=== PATIENT | female | born 1985 | race Caucasian/White ===

== ENCOUNTER 2019-07-27 13:28 | Inpatient (IN) | payer MEDICAID ==
[~2019-07-27] VITALS: Ht 167.6 cm; Wt 89.2 kg
[~2019-07-27 13:28] MED LIST: HYDR-523; IBUP-2030 PO; TRAM50TA3 PO
[2019-07-27] MEDS ORDERED: MORPHINE SULFATE 4 MG/ML CPJ (NOT FOR IM USE) IV STA (14:01)
[2019-07-27] MEDS ORDERED: SODIUM CHLORIDE 0.9% 1,000 ML IV ONE (14:01)
[2019-07-27] MEDS ORDERED: ONDANSETRON HCL 4MG/2ML INJ IV STA (14:01)
[2019-07-27 14:19] LABS: BASOPHILS % 0.2 % (0.0-2.0); EOSINOPHILS % 0.9 % (0.0-5.0); HEMATOCRIT. 38.4 % (36.0-48.0); HEMOGLOBIN. 13.4 g/dL (12.0-16.0); LYMPHOCYTES % 17.8 % (20.0-50.0); MEAN CORPUSCULAR HEMOGLOBIN 31.1 pg (28.0-32.0); MEAN CORPUSCULAR VOLUME 89.1 fL (81.0-99.0); MEAN PLATELET VOLUME 8.6 fl (7.4-10.4); MONOCYTES % 7.4 % (2.0-8.0); NEUTROPHILS % 73.7 % (40.0-76.0); PLATELET 265 x1000/uL (130-400); RED BLOOD CELL COUNT 4.31 mill/uL (4.2-5.4); RED CELL DISTRIBUTION WIDTH 13.5 % (11.6-14.6)
[2019-07-27 14:24] LABS: PROTHROMBIN TIME 10.4 sec (9.6-11.0)
[2019-07-27 14:28] LABS: CHLORIDE 108 mEq/L (98-107)
[2019-07-27 14:32] LABS: HCG SCREEN NEGATIVE
[2019-07-27] MEDS ORDERED: IOHEXOL-300 100 ML BOTTLE ONE (17:39)
[2019-07-27 20:20] VITALS: BP 104/61
[2019-07-27 20:30] VITALS: BP 104/61
[2019-07-27] MEDS ORDERED: KETOROLAC 30MG/ML VIAL IV PRN (21:30)
[2019-07-27] MEDS ORDERED: SODIUM CHLORIDE 0.9% 1,000 ML IV SCH (21:45)
[2019-07-28] VITALS: BP 93/43
[2019-07-28] MEDS ORDERED: MAGNESIUM/ALUMINUM HYDROXIDE/SIMETHICONE 30ML UDC PO PRN (00:15)
[2019-07-28] MEDS ORDERED: ACETAMINOPHEN 325MG TABLET PO PRN (00:15)
[2019-07-28] MEDS ORDERED: ONDANSETRON HCL 4MG/2ML INJ IV PRN (00:15)
[2019-07-28] MEDS ORDERED: DIPHENHYDRAMINE 50MG/ML VIAL IV PRN (00:15)
[2019-07-28] MEDS ORDERED: MAGNESIUM/ALUMINUM HYDROXIDE/SIMETHICONE 30ML UDC PO NR (01:00)
[2019-07-28] MEDS ORDERED: PANTOPRAZOLE SODIUM 40 MG/VIAL IV SCH (01:00)
[2019-07-28] MEDS: SODIUM CHLORIDE 0.9% 1,000 ML IV SCH ×2 (01:15→08:56)
[2019-07-28 04:00] VITALS: BP 97/47
[2019-07-28 06:45] LABS: BASOPHILS % 0.3 % (0.0-2.0); EOSINOPHILS % 2.4 % (0.0-5.0); HEMATOCRIT. 34.3 % (36.0-48.0); HEMOGLOBIN. 11.7 g/dL (12.0-16.0); LYMPHOCYTES % 29.2 % (20.0-50.0); MEAN CORPUSCULAR HEMOGLOBIN 30.7 pg (28.0-32.0); MEAN CORPUSCULAR VOLUME 89.8 fL (81.0-99.0); MEAN PLATELET VOLUME 8.9 fl (7.4-10.4); MONOCYTES % 14.2 % (2.0-8.0); NEUTROPHILS % 53.9 % (40.0-76.0); PLATELET 227 x1000/uL (130-400); RED BLOOD CELL COUNT 3.82 mill/uL (4.2-5.4); RED CELL DISTRIBUTION WIDTH 13.4 % (11.6-14.6)
[2019-07-28 06:56] LABS: CHLORIDE 110 mEq/L (98-107)
[2019-07-28 08:00] VITALS: BP 98/60
[2019-07-28 08:52] LABS: CLARITY URINE CLOUDY (CLEAR); COLOR URINE ORANGE (YELLOW); KETONES URINE NEGATIVE (NEGATIVE); LEUKOCYTE ESTERASE URINE 1+ (NEGATIVE); NITRITE URINE NEGATIVE (NEGATIVE); OCCULT BLOOD URINE 3+ (NEGATIVE); PROTEIN URINE 2+ (NEGATIVE); SPECIFIC GRAVITY URINE 1.029 (1.005-1.030)
[2019-07-28 17:47] VITALS: BP 103/68
== END 2019-07-28 17:40 | disposition home or self-care (01) ==
LOC: ER 13:28 → ENRESERV 19:33 → 6WST 20:10
PROVIDERS: ADMIT Ophthalmology; ATTEND Ophthalmology
DX: K80.51 Calculus of bile duct without cholangitis or cholecystitis with obstruction (principal); K21.9 Gastro-esophageal reflux disease without esophagitis; R07.89 Other chest pain; K22.4 Dyskinesia of esophagus; Z90.49 Acquired absence of other specified parts of digestive tract; Z79.899 Other long term (current) drug therapy; R74.0 Nonspecific elevation of levels of transaminase and lactic acid dehydrogenase [LDH]
CPT/HCPCS: 36415; 71045; 74177; 74181; 80053; 81003; 84484; 84703; 85025; 93005; 93970; 96374; 99285; C9113; J2270; J2405; J7030; Q9967